=== PATIENT | male | born 1945 | race Caucasian/White ===

== ENCOUNTER 2016-09-05 23:08 | Emergency (ER) | payer MEDICARE, OTHER ==
[~2016-09-05] VITALS: Ht 175.3 cm; Wt 107.1 kg
[~2016-09-05 23:08] MED LIST: Z.0.NO CURRENT MEDS
[2016-09-05 23:16] VITALS: BP 185/97; PULSE 102; RESP 22; TEMP 98.6; O2SAT 95
[2016-09-05] MEDS ORDERED: ENAL10TA PO (23:36)
--- NOTE | 2016-09-05 23:48 | PD ---
HPI Chief Complaint: Respiratory Symptoms Time Seen by Provider: 23:35 Travel History International Travel<30 days: No Contact w/Intl Traveler<30days: No Traveled to known affect area: No History of Present Illness HPI The patient is a 71-year-old male who complains of a sharp, pleuritic pain in the left upper chest. When he takes a breath it hurts. This is been going on since 2 PM yesterday. He denies any fever, nausea, vomiting or diarrhea. He denies any trauma to the area. He does not smoke. He denies any shortness of breath or hemoptysis. PFSH Past Medical History Cancer: Yes (L MANDIBLE MELANOMA) Diminished Hearing: No Hypertension: Yes Immunizations Current: No Tetanus Vaccination: Unknown Influenza Vaccination: No Past Surgical History Cholecystectomy: Yes Other Surgery: Yes (L MANDIBLE) Social History Alcohol Use: No Tobacco Use: No Substance Use: No Allergies-Medications (Allergen,Severity, Reaction): Coded Allergies: No Known Allergies (Verified , 09/05/16) Reported Meds & Prescriptions Reported Meds & Active Scripts Active Reported Enalapril (Enalapril Maleate) 10 Mg Tab 10 Mg PO DAILY Review of Systems Except as stated in HPI: all other systems reviewed are Neg Physical Exam Narrative GENERAL: The patient is alert, oriented 3 in no respiratory distress. He has slight distress with the pain on the left anterior chest. His vital signs show heart rate of 102 and respirations 22 and blood pressure 185/97. Oximetry is 95 % on room air. The temperature is normal. SKIN: Warm and dry. HEAD: Atraumatic. Normocephalic. EYES: Pupils equal and round. No scleral icterus. No injection or drainage. ENT: No nasal bleeding or discharge. Mucous membranes pink and moist. NECK: Trachea midline. No JVD. CARDIOVASCULAR: Regular rate and rhythm. No murmur appreciated. RESPIRATORY: No accessory muscle use. Clear to auscultation. Breath sounds equal bilaterally. I cannot reproduce the patient's pain by pressing on the chest wall. GASTROINTESTINAL: Abdomen soft, non-tender, nondistended. Hepatic and splenic margins not palpable. MUSCULOSKELETAL: No obvious deformities. No clubbing. No cyanosis. No edema. NEUROLOGICAL: Awake and alert. No obvious cranial nerve deficits. Motor grossly within normal limits. Normal speech. PSYCHIATRIC: Appropriate mood and affect; insight and judgment normal. Data Data Last Documented VS Vital Signs Date Time Temp Pulse Resp B/P Pulse Ox O2 Delivery O2 Flow Rate FiO2 09/06/16 00:05 98.0 93 20 190/88 95 Room Air Orders Chest, Pa & Lat (09/05/16 23:48) Ketorolac Inj (Toradol Inj) (09/06/16 00:15) MDM Medical Decision Making Medical Screen Exam Complete: Yes Emergency Medical Condition: Yes Medical Record Reviewed: Yes Interpretation(s) The chest x-ray shows bibasilar atelectasis versus scarring but no acute change. Differential Diagnosis Pleurisy, chest wall pain, pneumonia, pulmonary embolusunlikely, pneumothorax unlikely Narrative Course The patient likely has pleurisy. He is improved following the Toradol shot and will be given a prescription for ibuprofen 600 mg to take regularly, 3 times daily. He needs to follow-up with a primary care physician. Diagnosis Primary Impression: Pleurisy Additional Instructions: As we discussed, it is necessary to take the Motrin regularly, 1 tablet 3 times daily for pleurisy. Follow-up with a primary care physician next week. Med/Other Pt SpecificInfo: Prescription(s) given Scripts Ibuprofen 600 Mg [id number] Mg PO TID #40 TAB Ref 0 Prov:Jay Giraldo MD 09/06/16 Disposition: 01 DISCHARGE HOME Condition: Stable Jay Giraldo MD Sep 05, 2016 23:48
[2016-09-06 00:05] VITALS: BP 190/88; PULSE 93; RESP 20; TEMP 98; O2SAT 95
[2016-09-06] MEDS ORDERED: KETOROLAC TROMETHAMINE 60 MG/2 ML (IM) VIAL IM ONE (00:15)
--- NOTE | 2016-09-06 00:35 | RADHPO ---
EXAM DATE/TIME: 09/05/2016 23:54 [facility] COMPARISON: No previous studies available for comparison. INDICATIONS : Chest pain. MEDICAL HISTORY : None. SURGICAL HISTORY : None. ENCOUNTER: Initial ACUITY: 1 day PAIN SCORE: 5/10 LOCATION: Bilateral cranial FINDINGS: Cardiomegaly. Atelectasis of the left lung base and right lung base versus scarring. No effusions. De generative changes of the spine. CONCLUSION: Basilar atelectasis versus scarring. Tom Giron MD on September 06, 2016 at 0:33 Board Certified Radiologist. This report was verified electronically.
[2016-09-06] MEDS ORDERED: IBUP-232 PO (00:51)
[2016-09-06 01:10] VITALS: BP 170/80; PULSE 88; RESP 18; O2SAT 96
== END 2016-09-06 01:30 | disposition home or self-care (01) ==
LOC: EDBD → PHED 23:08
DX: R09.1 Pleurisy (principal); I10 Essential (primary) hypertension
CPT/HCPCS: 71020; 96372; 99284; J1885

== ENCOUNTER 2017-04-15 11:06 | Emergency (ER) | payer MEDICARE, MEDICAID ==
[~2017-04-15] VITALS: Ht 177.8 cm; Wt 100.0 kg
[~2017-04-15 11:06] MED LIST changes: +ENAL10TA PO; +IBUP-232 PO; -Z.0.NO CURRENT MEDS
[2017-04-15 11:09] VITALS: BP 156/84; PULSE 100; RESP 20; TEMP 98.1; O2SAT 96
[2017-04-15 12:25] LABS: AUTOMATED NEUTROPHIL # 3.5 TH/MM3 (1.8-7.7); BASOPHIL % 0.7 % (0.0-2.0); EOSINOPHIL # 0.4 TH/MM3 (0-0.4); EOSINOPHIL % 5.6 % (0.0-4.0); HEMATOCRIT 43.9 % (39.0-51.0); HEMO FLAGS DIFF FINAL; MEAN CELL VOLUME 78.1 FL (80.0-100.0); MEAN CORPUSCULAR HEMOGLOBIN 25.5 PG (27.0-34.0); MEAN CORPUSCULAR HGB CONC 32.6 % (32.0-36.0); MONO % 10.4 % (0.0-8.0); NEUT % 52.3 % (16.0-70.0); PLATELET COUNT 204 TH/MM3 (150-450); RED BLOOD COUNT 5.62 MIL/MM3 (4.50-5.90); RED CELL DISTRIBUTION WIDTH 15.2 % (11.6-17.2); WHITE BLOOD COUNT 6.6 TH/MM3 (4.0-11.0)
[2017-04-15 12:32] LABS: BLOOD, URINE NEG (NEG); COMMENT (UR) CULT NOT INDICATED; CULTURE IF INDICATED CULT NOT INDICATED; GLUCOSE,URINE NEG (NEG); KETONE, URINE NEG (NEG); MUCUS URINE FEW /lpf (OCC); NITRITE,URINE NEG (NEG); URINE COLOR YELLOW (YELLW/STRAW)
[2017-04-15 12:38] LABS: APTT (PATIENT) 26.6 SEC (24.3-30.1); PROTHROMBIN TIME - PATIENT 11.1 SEC (9.8-11.6)
[2017-04-15 12:43] LABS: ANION GAP 6 MEQ/L (5-15); AST (GOT) 30 U/L (15-37); BICARBONATE 26.4 MEQ/L (21.0-32.0); BLOOD UREA NITROGEN 12 MG/DL (7-18); CHLORIDE 105 MEQ/L (98-107); GLOMERULAR FILTRATION RATE 76 ML/MIN (>89); POTASSIUM 4.1 MEQ/L (3.5-5.1); SODIUM (NA) 137 MEQ/L (136-145)
[2017-04-15 12:44] LABS: ALT (GPT) 38 U/L (12-78)
[2017-04-15 12:46] LABS: ALKALINE PHOSPHATASE 77 U/L (45-117); TOTAL BILIRUBIN ADULT 0.4 MG/DL (0.2-1.0)
--- NOTE | 2017-04-15 12:56 | PD ---
HPI Chief Complaint: Complaint Time Seen by Provider: 11:18 Travel History International Travel<30 days: No Contact w/Intl Traveler<30days: No Traveled to known affect area: No History of Present Illness HPI This is a 72-year-old male who presents to the emergency department with painless hematuria that happened this morning when he went to the bathroom. He saw some light red blood in his urine. He denies any dysuria, fevers or chills. It was 1 episode and it has subsided since. He otherwise feels well with no lightheadedness or dizziness. The episode was mild. He has never had this happen before. PFSH Past Medical History Cancer: Yes (L MANDIBLE MELANOMA) Diminished Hearing: No Hypertension: Yes Immunizations Current: No Past Surgical History Cholecystectomy: Yes Genitourinary Surgery: Yes (vasectomy ) Other Surgery: Yes (L MANDIBLE) Social History Alcohol Use: No Tobacco Use: No Substance Use: No Allergies-Medications (Allergen,Severity, Reaction): Coded Allergies: No Known Allergies (Verified , 04/15/17) Reported Meds & Prescriptions Reported Meds & Active Scripts Active Reported Enalapril (Enalapril Maleate) 10 Mg Tab 10 Mg PO DAILY Review of Systems Except as stated in HPI: all other systems reviewed are Neg Physical Exam Narrative GENERAL:Well appearing, no acute distress SKIN: Focused skin assessment warm and dry. HEAD: Atraumatic. Normocephalic. EYES: Pupils equal and round. No injection or drainage. ENT: Moist mucous membranes NECK: Trachea midline. CARDIOVASCULAR: Regular rate and rhythm. No murmur appreciated. RESPIRATORY: Clear to auscultation. Breath sounds equal bilaterally. GASTROINTESTINAL: Abdomen soft, non-tender, nondistended. MUSCULOSKELETAL: No obvious deformities. NEUROLOGICAL: Awake and alert. No obvious cranial nerve deficits. Moving all extremities. PSYCHIATRIC: Appropriate mood and affect; insight and judgment normal. Data Data Last Documented VS Vital Signs Date Time Temp Pulse Resp B/P (MAP) Pulse Ox O2 Delivery O2 Flow Rate FiO2 04/15/17 11:09 98.1 100 20 156/84 (108) 96 Room Air Orders Orders Complete Blood Count With Diff (04/15/17 11:45) Comprehensive Metabolic Panel (04/15/17 11:45) ^ Insert Iv (04/15/17 11:45) Urinalysis - C+S If Indicated (04/15/17 11:45) Prothrombin Time / Inr (Pt) (04/15/17 11:45) Act Partial Throm Time (Ptt) (04/15/17 11:45) Labs Laboratory Tests Test 04/15/17 12:15 White Blood Count 6.6 TH/MM3 Red Blood Count 5.62 MIL/MM3 Hemoglobin 14.3 GM/DL Hematocrit 43.9 % Mean Corpuscular Volume 78.1 FL Mean Corpuscular Hemoglobin 25.5 PG Mean Corpuscular Hemoglobin Concent 32.6 % Red Cell Distribution Width 15.2 % Platelet Count 204 TH/MM3 Mean Platelet Volume 7.7 FL Neutrophils (%) (Auto) 52.3 % Lymphocytes (%) (Auto) 31.0 % Monocytes (%) (Auto) 10.4 % Eosinophils (%) (Auto) 5.6 % Basophils (%) (Auto) 0.7 % Neutrophils # (Auto) 3.5 TH/MM3 Lymphocytes # (Auto) 2.0 TH/MM3 Monocytes # (Auto) 0.7 TH/MM3 Eosinophils # (Auto) 0.4 TH/MM3 Basophils # (Auto) 0.0 TH/MM3 CBC Comment DIFF FINAL Differential Comment Prothrombin Time 11.1 SEC Prothromb Time International Ratio 1.0 RATIO Activated Partial Thromboplast Time 26.6 SEC Urine Color YELLOW Urine Turbidity CLEAR Urine pH 5.0 Urine Specific [place] 1.018 Urine Protein NEG mg/dL Urine Glucose (UA) NEG mg/dL Urine Ketones NEG mg/dL Urine Occult Blood NEG Urine Nitrite NEG Urine Bilirubin NEG Urine Urobilinogen LESS THAN 2.0 MG/DL Urine Leukocyte Esterase NEG Urine RBC LESS THAN 1 /hpf Urine WBC 1 /hpf Urine Mucus FEW /lpf Microscopic Urinalysis Comment CULT NOT INDICATED Blood Urea Nitrogen 12 MG/DL Creatinine 0.98 MG/DL Random Glucose 92 MG/DL Total Protein 7.0 GM/DL Albumin 3.5 GM/DL Calcium Level 8.4 MG/DL Alkaline Phosphatase 77 U/L Aspartate Amino Transf (AST/SGOT) 30 U/L Alanine Aminotransferase (ALT/SGPT) 38 U/L Total Bilirubin 0.4 MG/DL Sodium Level 137 MEQ/L Potassium Level 4.1 MEQ/L Chloride Level 105 MEQ/L Carbon Dioxide Level 26.4 MEQ/L Anion Gap 6 MEQ/L Estimat Glomerular Filtration Rate 76 ML/MIN MDM Medical Decision Making Medical Screen Exam Complete: Yes Emergency Medical Condition: Yes Interpretation(s) Afebrile, mild tachycardia, hypertensive Labs are reassuring Electrolytes are reassuring Urinalysis: No infection Differential Diagnosis Urinary tract infection, BPH, bladder cancer Narrative Course This is a 72-year-old male who presents to the emergency department with blood in his urine. He is asymptomatic. Currently he has no blood in his urine on urinalysis. I think he's safe to follow-up with the urologist. Diagnosis Primary Impression: Hematuria Qualified Codes: R31.9 - Hematuria, unspecified Referrals: David Douglas DO Patient Instructions: General Instructions Additional Instructions: It is very important that you follow-up with a urologist regarding the blood in her urine to make sure that you don't have bladder cancer. Med/Other Pt SpecificInfo: No Change to Meds Disposition: 01 DISCHARGE HOME Condition: Stable Irene Leigh MD Apr 15, 2017 12:56
[2017-05-08] MEDS ORDERED: ENAL20TA PO (11:12)
[2017-05-08] MEDS ORDERED: TAMS5CAP PO (12:08)
== END 2017-04-15 13:04 | disposition home or self-care (01) ==
LOC: NEPE 11:06
DX: R31.9 Hematuria, unspecified (principal); I10 Essential (primary) hypertension; Z85.828 Personal history of other malignant neoplasm of skin
CPT/HCPCS: 80053; 81001; 85025; 85610; 85730; 99283; 99284

== ENCOUNTER 2017-04-15 17:44 | Emergency (ER) | payer MEDICARE ==
[2017-04-15 17:49] VITALS: BP 173/81; PULSE 95; RESP 20; TEMP 98.9; O2SAT 95
--- NOTE | 2017-04-15 18:58 | PD ---
HPI Chief Complaint: Complaint Time Seen by Provider: 17:56 Travel History International Travel<30 days: No Contact w/Intl Traveler<30days: No Traveled to known affect area: No History of Present Illness HPI 72yo M with PMH of HTN presents to the ED with c/o blood from the penis. Pt was evaluated at [facility] ED today and said they didnt do anything so came here. Pt was seen by Dr. Leigh and she did check urinalysis and labs which were negative. Pt is well appearing and denies any fever, chest pain, sob, n/v , abdominal pain, testicular pain, trauma, focal weakness or numbness. PFSH Past Medical History Cancer: Yes (L MANDIBLE MELANOMA) Diminished Hearing: No Hypertension: Yes Immunizations Current: No Influenza Vaccination: No Past Surgical History Cholecystectomy: Yes Genitourinary Surgery: Yes (vasectomy ) Other Surgery: Yes (L MANDIBLE) Social History Alcohol Use: No Tobacco Use: No Substance Use: No Allergies-Medications (Allergen,Severity, Reaction): Coded Allergies: No Known Allergies (Verified , 04/15/17) Reported Meds & Prescriptions Reported Meds & Active Scripts Active Reported Enalapril (Enalapril Maleate) 10 Mg Tab 10 Mg PO DAILY Review of Systems Except as stated in HPI: all other systems reviewed are Neg Physical Exam Narrative GENERAL: 72yo M not in distress. SKIN: Focused skin assessment warm/dry. HEAD: Atraumatic. Normocephalic. CARDIOVASCULAR: Regular rate and rhythm. No murmur appreciated. RESPIRATORY: No accessory muscle use. Clear to auscultation. Breath sounds equal bilaterally. GASTROINTESTINAL: Abdomen soft, non-tender, nondistended. No rebound tenderness or guarding. : No testicular ttp. Dry blood from bottom of penis to scrotum. No active bleeding. MUSCULOSKELETAL: No obvious deformities. No clubbing. No cyanosis. No edema. NEUROLOGICAL: Awake and alert. No obvious cranial nerve deficits. Motor grossly within normal limits. Normal speech. PSYCHIATRIC: Appropriate mood and affect; insight and judgment normal. Data Data Last Documented VS Vital Signs Date Time Temp Pulse Resp B/P (MAP) Pulse Ox O2 Delivery O2 Flow Rate FiO2 04/15/17 17:49 98.9 95 20 173/81 (111) 95 Orders Orders Ed Poc Ultrasound (04/15/17 ) [facility] Medical Decision Making Medical Screen Exam Complete: Yes Emergency Medical Condition: Yes Differential Diagnosis Bladder mass vs. bladder CA vs. renal CA vs. UTI Narrative Course 72yo M here for evaluation for painless hematuria. Pt was just seen today at the main [place] and creatinine was normal at 0.98. UA showed no blood or leukocytosis. Pt may have intermittent hematuria. No lacerations seen on scrotum. No history of trauma. Did bedside ultrasound and did not see any mass in bladder. Pt is to follow up with urologist Dr. Douglas. He was given follow up information already. Procedures Procedure Narrative Emergency department urinary tract ultrasound was performed with patient consent. Curvilinear probe was used in the transverse and sagittal views in the bilateral flank and suprapubic region without evidence of hydronephrosis or bladder mass. Diagnosis Primary Impression: Hematuria Qualified Codes: R31.9 - Hematuria, unspecified Patient Instructions: General Instructions Departure Forms: Tests/Procedures Additional Instructions: Please follow up with Dr. Douglas for gross hematuria. Return to the ED if symptoms worsen. Med/Other Pt SpecificInfo: No Change to Meds Disposition: 01 DISCHARGE HOME Condition: Stable Kathryn Nobles DO Apr 15, 2017 18:58
[2017-04-15 19:18] VITALS: BP 157/78; TEMP 98.1
[2017-05-08] MEDS ORDERED: ENAL20TA PO (11:12)
[2017-05-08] MEDS ORDERED: TAMS5CAP PO (12:08)
== END 2017-04-15 19:20 | disposition home or self-care (01) ==
LOC: PHED 17:44
DX: R31.9 Hematuria, unspecified (principal); I10 Essential (primary) hypertension; Z85.830 Personal history of malignant neoplasm of bone
CPT/HCPCS: 99284

== ENCOUNTER → 2017-07-15 | Outpatient (CLI) | payer MEDICARE ==
[~2017-07-15] MED LIST changes: -ENAL10TA PO; +ENAL20TA PO; -IBUP-232 PO; +TAMS5CAP PO
[2017-07-15 08:31] LABS: BICARBONATE 28.9 MEQ/L (21.0-32.0); POTASSIUM 3.8 MEQ/L (3.5-5.1)
[2017-07-15 08:32] LABS: HDL CHOLESTEROL 37.8 MG/DL (40.0-60.0)
== END ==
LOC: CLAB 07:43
PROVIDERS: ATTEND Family Medicine
DX: I10 Essential (primary) hypertension (principal); N40.1 Benign prostatic hyperplasia with lower urinary tract symptoms
CPT/HCPCS: 36415; 80048; 80061; 84153